=== PATIENT | female | born 1990 | race Caucasian/White ===

== ENCOUNTER 2018-11-22 18:27 | Emergency (ER) | payer OTHER ==
--- NOTE | 2018-11-22 19:09 | EDPHY ---
H & P Stated Complaint: L knee injury Time Seen by Provider: 11/22/18 19:09 HPI/ROS: HPI: This is a 28-year-old female who presents with Chief Complaint: Left knee injury Location: Left knee Quality: Injury Duration: Prior to arrival Signs and Symptoms: No bleeding, no radiation, no numbness, no weakness, no tingling, no incontinence, + decreased range of motion, + swelling, + pain, no fever Timing: Acute Severity: Moderate Context: Patient was at work, [employer] in [place], when she accidentally slipped on a wet floor and landed directly onto her left knee. She reports that she felt immediate, constant, severe pain that radiated down into her left ankle. She reports that she required assistance to get up from the floor secondary to the pain. She has a history of a torn ACL in her left knee. She reports increased pain with weight-bearing. Denies LOC/head injury/neck pain/dizziness/nausea/ vomiting/amnesia. Modifying Factors: None Comment: ROS: A comprehensive 10 system review of systems is otherwise negative aside from elements mentioned in the history of present illness. MEDICAL/SURGICAL/SOCIAL HISTORY: Medical history: TORN ACL LEFT KNEE, ASTHMA, obesity Surgical history: Denies Social history: Employed. Never smoked. CONSTITUTIONAL: Well of, well-nourished pleasant adult white female, awake and alert, no obvious distress HEENT: Atraumatic and normocephalic. NECK: supple, no midline tenderness, flexion 45 degrees, extension 45 degrees, right and left lateral flexion 45 degrees. No meningismus. Cardiovascular: Normal S1/S2, regular rate, regular rhythm, without murmur rub or gallop. PULMONARY/CHEST: Symmetrical and nontender. clear to auscultation bilaterally. Good air movement. No accessory muscle usage. ABDOMEN: Soft, nondistended, nontender. BACK: No midline tenderness EXTREMITIES: 2/2 pulses, strength 5/5, left KNEE: Mild effusion, mild medial and lateral joint line tenderness, full extension to 180, flexion to 120. Mild pain with varus and valgus exam. Mild pain with anterior drawer or posterior drawer test. Extensor mechanism intact. DIP/PIP/MCP flexion/extension intact with good light touch sensation. no deformities, no clubbing, no cyanosis or edema. NEUROLOGICAL: no focal neuro deficits. GCS 15. Light touch sensation intact. SKIN: Warm and dry, no erythema. no rash. Good capillary refill. Source: Patient Exam Limitations: No limitations - Personal History Current Tetanus/Diphtheria Vaccine: Unsure Current Tetanus Diphtheria and Acellular Pertussis (TDAP): Unsure Tetanus Vaccine Date: < 10 YEARS - Medical/Surgical History Hx Asthma: Yes Hx Chronic Respiratory Disease: No Hx Diabetes: No Hx Cardiac Disease: No Hx Renal Disease: No Hx Cirrhosis: No Hx Alcoholism: No Hx HIV/AIDS: No Hx Splenectomy or Spleen Trauma: No Other PMH: TORN ACL LEFT KNEE,ASTHMA - Social History Smoking Status: Never smoked Constitutional: Initial Vital Signs Temperature (C) 36.9 C 11/22/18 18:39 Heart Rate 85 11/22/18 18:39 Respiratory Rate 16 11/22/18 18:39 Blood Pressure 136/88 H 11/22/18 18:39 O2 Sat (%) 95 11/22/18 18:39 O2 Delivery Mode Room Air Allergies/Adverse Reactions: peanuts Allergy (Uncoded 11/22/18 18:38) Home Medications: Medication Instructions Recorded Albuterol Sulfate 2.5 mg IH 06/03/13 oxyCODONE/APAP 5/325 [Percocet 1 - 2 tab PO Q4H PRN #10 tab 11/22/18 5/325 (*)] Medical Decision Making - Diagnostics Imaging Results: Imaging Impressions Knee X-Ray 11/22/18 18:42 Impression: 1. No acute osseous abnormality seen left knee. 2. Mild to moderate degenerative changes left knee joint and patellofemoral joint. Procedures: Procedure: Splint placement. A left knee immobilizer and crutches were applied by the Emergency Room wind commissioning technician. After application of the splint I returned and re-examined the patient. The splint was adequately immobilizing the joint and distal to the splint the patient's circulation and sensation was intact. ED Course/Re-evaluation: Left knee x-ray ordered Ice pack applied 1956: Left knee x-ray reviewed and shows 1. No acute osseous abnormality seen left knee. 2. Mild to moderate degenerative changes left knee joint and patellofemoral joint. Placed in knee immobilizer, crutches, orthopedic follow-up Percocet prescription given per patient request No signs of neurovascular compromise/tenting of skin/compartment syndrome/ extremities and joints examined above and below area of concern and are neurovascularly intact. This patient was seen under the supervision of my secondary supervising physician. I evaluated care for this patient independently. Discussed this patient with Dr. Multani who did not see the patient. Differential Diagnosis: Knee injury while [] including but not limited to fracture, ACL injury, contusion, muscular strain, and meniscus injury. - Data Points Medications Given: Discontinued Medications Ibuprofen (Motrin) 600 mg PO EDNOW ONE Stop: 11/22/18 19:12 Last Admin: 11/22/18 19:32 Dose: 600 mg Departure - Departure Disposition: Home, Routine, Self-Care Clinical Impression: Sprain of left knee Qualifiers: Encounter type: initial encounter Involved ligament of knee: unspecified ligament Qualified Code(s): S83.92XA - Sprain of unspecified site of left knee, initial encounter Degenerative joint disease of left knee Qualifiers: Osteoarthritis type: primary Qualified Code(s): M17.12 - Unilateral primary osteoarthritis, left knee Condition: Good Instructions: Knee Sprain (ED), Knee Immobilizer (ED), Crutch Instructions (ED) Additional Instructions: The x-rays obtained in the emergency department today demonstrate no evidence of an obvious fracture. Wear the knee immobilizer while out of bed until pain free or seen by Orthopedics. Use crutches to aid ambulation. Start with toe-touch weight-bearing status. Take Tylenol 650 mg every 4 hours and/or Ibuprofen 600 mg every 8 hours with food as needed for pain. Use Percocet every 6 hours as needed for severe/break through pain. Do not use Tylenol and Percocet concomitantly. Apply ice for 30 minutes at a time; 2-3 times per day for the next 1-2 days. Follow up with Orthopedics in 7-10 days if symptoms persist at which time they will evaluate and recommend with you if conservative management versus MRI knee is indicated. Referrals: Blaine Thomas MD [Medical Doctor] - As per Instructions Stand Alone Forms: Work Excuse Prescriptions: oxyCODONE/APAP 5/325 [Percocet 5/325 (*)] 1 - 2 tab PO Q4H PRN #10 tab PRN Reason: Pain, Severe
[2018-11-22] MEDS ORDERED: IBUPROFEN 600 MG TAB PO ONE (19:11)
[2018-11-22 20:35] VITALS: BP 120/90
== END 2018-11-22 20:35 | disposition home or self-care (01) ==
DX: S83.92XA Sprain of unspecified site of left knee, initial encounter (principal); M17.12 Unilateral primary osteoarthritis, left knee; W01.0XXA Fall on same level from slipping, tripping and stumbling without subsequent striking against object, initial encounter; Y99.0 Civilian activity done for income or pay; Y92.511 Restaurant or cafe as the place of occurrence of the external cause; Y93.9 Activity, unspecified
CPT/HCPCS: L1830